=== PATIENT | male | born 1965 | race Caucasian/White ===

== ENCOUNTER 2018-01-06 15:46 | Emergency (ER) | payer OTHER ==
[2018-01-06] MEDS ORDERED: KETOROLAC 60 MG/2 ML VIAL IM STA (16:20)
[2018-01-06 17:07] LABS: BILIRUBIN,URINE NEGATIVE (NEGATIVE); CLARITY,URINE CLEAR (CLEAR); GLUCOSE, URINE (UA) NEGATIVE (NEGATIVE); KETONES,URINE (UA) NEGATIVE (NEGATIVE); LEUKOCYTE ESTERASE, URINE NEGATIVE (NEGATIVE); NITRITE,URINE NEGATIVE (NEGATIVE); OCCULT BLOOD,URINE NEGATIVE (NEGATIVE); PROTEIN,URINE NEGATIVE (NEGATIVE); UROBILINOGEN,URINE 0.2 (NORMAL) E.U./dL (NORMAL)
[2018-01-06 17:19] VITALS: BP 112/74
--- NOTE | 2018-01-06 17:19 | ED Physician Documentation ---
History of Present Illness - Stated complaint Stated Complaint: RT FLANK PX - Chief complaint Chief Complaint: Abd Pain - Additonal information Additional information: hx from pt 52 male suffering from kidney stones for 2 months now states first seen at [facility] and was passing a stone on the right and CT showed a 3 and 5 mm L renal stone and a punctate R renal calcification then [place] [facility] and had continued R sided pain and had another CT and was sent to urology in [facility] urologist ordered a 3rd CT which was done 2 weeks ago at [facility] pain continues no hematuria no fever no NV Review of Systems Constitutional: denies: Fever, Chills Cardiac: denies: Chest pain / pressure Respiratory: denies: Dyspnea GI: reports: Abdominal Pain. denies: Nausea, Vomiting : denies: Hematuria Musculoskeletal: reports: Back pain PD PAST MEDICAL HISTORY - Past Medical History Past Medical History: No - Past Surgical History Past Surgical History: No - Present Medications Home Medications: Ambulatory Orders Medication Instructions Recorded Confirmed Gabapentin 01/06/18 Ibuprofen [Motrin] 400 mg PO Q6H PRN #30 tablet 01/06/18 - Allergies Allergies/Adverse Reactions: Allergies Allergy/AdvReac Type Severity Reaction Status Date / Time No Known Drug Allergies Allergy Verified 01/06/18 16:01 - Social History Does the pt smoke?: Yes Smoking Status: Current every day smoker Does the pt drink ETOH?: No Does the pt have substance abuse?: No - Immunizations Immunizations are current?: Yes PD ED PE NORMAL - Vitals Vital signs reviewed: Yes - Neck Neck: Supple, no meningeal sign - Cardiac Cardiac: RRR - Respiratory Respiratory: No respiratory distress - Abdomen Abdomen: Soft, Non tender - Derm Derm: Normal color Results - Vitals Vitals: Vital Signs - 24 hr 01/06/18 01/06/18 15:55 17:17 Temperature 36.6 C Heart Rate 105 H 84 Respiratory 18 18 Rate Blood Pressure 145/94 H 112/74 O2 Saturation 98 98 Oxygen O2 Source Room air - Labs Labs: Laboratory Tests 01/06/18 17:00 Urine Color YELLOW Urine Clarity CLEAR Urine pH 6.0 Ur Specific [place] <=1.005 Urine Protein NEGATIVE Urine Glucose (UA) NEGATIVE Urine Ketones NEGATIVE Urine Occult Blood NEGATIVE Urine Nitrite NEGATIVE Urine Bilirubin NEGATIVE Urine Urobilinogen 0.2 (NORMAL) Ur Leukocyte Esterase NEGATIVE Ur Microscopic Review NOT INDICATED Urine Culture Comments NOT INDICATED PD MEDICAL DECISION MAKING - ED course ED course: CT from 12/[address] [facility] - punctate calculi within non distended calyces both kidneys, non obst 4 X 6 mm L mid kidney, no ureteral dilatation, pheboliths, doubt ureteral stones, no appendicitis Departure - Departure Disposition: 01 Home, Self Care Clinical Impression: Right flank pain Condition: Good Follow-Up: [facility] [Provider Group] Prescriptions: Ibuprofen [Motrin] 400 mg PO Q6H PRN #30 tablet PRN Reason: Pain Comments: I got the CT results from [place] and gave you a copy of the results. There were only punctate stones in the right kidney and none appeared to be actively passing at that time Also you gallbladder looked normal on that CT Todays urine sample does not show an infection or blood to suggest another stone is passing I considered getting an ultrasound to take another look at the gallbladder as well as kidney but that test is not available at [facility] right now I do not want to expose you to the radiation of another CT scan So for right now, given that the right sided stones on most recent CT were very very small and there is no blood or urine in todays urine, I think it is safe for you to go home. I recommend motrin for the pain Please follow up with your urologist and your PMD and ask your PMD to consider ordering an ultrasound of your gallbladder since we could not get that in the ED today. Return if worse especially for fever severe pain, can't pee, skin and eyes turning yellow (sign of a blocked gallbladder) Forms: Activity restrictions
[2018-01-06] MEDS ORDERED: ACETAMINOPHEN 325 MG TABLET PO STA (18:03)
== END 2018-01-06 18:13 | disposition home or self-care (01) ==
LOC: ED 15:46
DX: R10.9 Unspecified abdominal pain (principal); F17.200 Nicotine dependence, unspecified, uncomplicated; Z87.442 Personal history of urinary calculi
CPT/HCPCS: 81003; 96372; 99283; A9270; 81001; 87086